=== PATIENT | female | born 1960 | race Caucasian/White ===

== ENCOUNTER 2017-08-17 13:06 | Outpatient (CLI) | payer OTHER | END 2017-08-17 13:17 | disposition home or self-care (01) | LOC: RAD 13:06 | DX: M54.5 Low back pain (principal) ==

== ENCOUNTER 2018-05-20 14:15 | Emergency (ER) | payer OTHER ==
[~2018-05-20] VITALS: Ht 160 cm; Wt 77.1 kg
[2018-05-20] MEDS ORDERED: SYNTHROID50 MCG (14:18)
[2018-05-21] MEDS ORDERED: NORFLEX100MG PO (14:40)
[2018-05-21] MEDS ORDERED: DICLOFENAC POTA50 MG PO (14:40)
== END 2018-05-21 16:45 | disposition home or self-care (01) ==
LOC: ER 14:15
DX: K57.90 Diverticulosis of intestine, part unspecified, without perforation or abscess without bleeding (principal); R10.31 Right lower quadrant pain

== ENCOUNTER 2018-07-28 13:42 | Outpatient (CLI) | payer OTHER ==
[~2018-07-28 13:42] MED LIST: DICLOFENAC POTA50 MG PO; NORFLEX100MG PO; SYNTHROID50 MCG
== END 2018-07-28 13:47 | disposition home or self-care (01) ==
LOC: RAD 501 13:42
DX: J44.1 Chronic obstructive pulmonary disease with (acute) exacerbation (principal)

== ENCOUNTER 2018-07-28 14:41 | Outpatient (CLI) | payer OTHER | END 2018-07-28 14:49 | disposition home or self-care (01) | LOC: LAB 14:41 | DX: A37.91 Whooping cough, unspecified species with pneumonia (principal) ==

== ENCOUNTER 2018-07-30 16:26 | Emergency (ER) | payer OTHER ==
[~2018-07-30] VITALS: Ht 160 cm; Wt 74.8 kg
== END 2018-07-30 19:58 | disposition home or self-care (01) ==
LOC: ER 16:26
DX: B34.9 Viral infection, unspecified (principal); J11.1 Influenza due to unidentified influenza virus with other respiratory manifestations

== ENCOUNTER 2019-03-23 07:57 | Outpatient (CLI) | payer OTHER | END 2019-03-23 08:11 | disposition home or self-care (01) | LOC: RAD 07:57 | DX: R13.19 Other dysphagia (principal); N64.4 Mastodynia; Z12.31 Encounter for screening mammogram for malignant neoplasm of breast ==

== ENCOUNTER 2020-07-04 14:04 | Outpatient (CLI) | payer OTHER | END 2020-07-04 14:42 | disposition home or self-care (01) | LOC: MAMO-SONO 14:04 | PROVIDERS: ATTEND Internal Medicine | DX: E06.5 Other chronic thyroiditis (principal); Z12.31 Encounter for screening mammogram for malignant neoplasm of breast; E04.2 Nontoxic multinodular goiter ==

== ENCOUNTER → 2020-09-03 14:15 | Outpatient (CLI) | payer OTHER | END | disposition home or self-care (01) | LOC: EKG 14:15 | DX: Z41.1 Encounter for cosmetic surgery (principal); Z01.810 Encounter for preprocedural cardiovascular examination ==

== ENCOUNTER 2021-02-20 14:10 | Outpatient (CLI) | payer OTHER | END 2021-02-20 14:15 | disposition home or self-care (01) | LOC: RAD 14:10 | PROVIDERS: ATTEND Internal Medicine | DX: M47.897 Other spondylosis, lumbosacral region (principal); M54.17 Radiculopathy, lumbosacral region ==

== ENCOUNTER 2021-11-27 12:57 | Outpatient (CLI) | payer OTHER | END 2021-11-27 13:03 | disposition home or self-care (01) | LOC: MAMO-SONO 12:57 | PROVIDERS: ATTEND Specialist | DX: Z12.31 Encounter for screening mammogram for malignant neoplasm of breast (principal); N64.4 Mastodynia ==

== ENCOUNTER 2022-08-11 10:06 | Outpatient (CLI) | payer OTHER | END 2022-08-11 10:12 | disposition home or self-care (01) | LOC: SONOGRAMA 10:06 | PROVIDERS: ATTEND Internal Medicine | DX: E04.2 Nontoxic multinodular goiter (principal) ==

== ENCOUNTER → 2022-08-11 | Outpatient (CLI) | payer OTHER | END | disposition home or self-care (01) | LOC: NUCLEAR 09:37 | PROVIDERS: ATTEND Internal Medicine | DX: R00.0 Tachycardia, unspecified (principal) ==